=== PATIENT | male | born 1990 | race African-American/Black ===

== ENCOUNTER 2023-01-11 22:54 | Emergency (ER) | payer OTHER ==
[~2023-01-11] VITALS: Ht 177.8 cm; Wt 105.0 kg
[2023-01-12] MEDS ORDERED: KETOROLAC 30MG/ML VIAL IM ONE (00:15)
[2023-01-12] MEDS ORDERED: CYCLOBENZAPRINE 10MG TABLET PO ONE (00:15)
[2023-01-12 00:21] VITALS: BP 124/63
== END 2023-01-12 00:48 ==
LOC: ER 22:54
DX: M25.511 Pain in right shoulder (principal); M79.662 Pain in left lower leg
CPT/HCPCS: 96372; 99283; J1885; Z7610; A4565

== ENCOUNTER 2024-10-17 18:16 | Emergency (ER) | payer MEDICAID ==
[~2024-10-17] VITALS: Ht 177.8 cm; Wt 99.8 kg
[2024-10-17 18:29] VITALS: BP 133/78; RESP 16; O2SAT 98
[2024-10-17 18:33] VITALS: PULSE 108; O2SAT 99
[2024-10-17] MEDS: LIDOCAINE HCL 1% 20ML VIAL INFIL ONE (19:12)
== END 2024-10-17 19:49 | disposition home or self-care (01) ==
LOC: ER 18:16
DX: S81.811A Laceration without foreign body, right lower leg, initial encounter (principal); Z98.890 Other specified postprocedural states; X58.XXXA Exposure to other specified factors, initial encounter; Y93.89 Activity, other specified; Y92.89 Other specified places as the place of occurrence of the external cause; Y99.8 Other external cause status
CPT/HCPCS: 12002; 99282; J3490; Z7610